=== PATIENT | female | born 1930 | race Caucasian/White ===

== ENCOUNTER → 2017-08-19 | Outpatient (CLI) | payer MEDICARE, OTHER ==
[~2017-08-19] MED LIST: ACIP20TA PO; ASPI81TA2 PO; CEFT500T PO; DRIS1CAP PO; DRON40TA PO; GENE10SO PO; HYDR12.56 PO; LEVO500T PO; LOTR5CAP2 PO; SYMB16INH INH; SYNT75TA PO; ZITH500T PO; ZOFR4TAB3 PO; spiriva INH
[2017-08-19 10:09] LABS: BASO % 0.5 % (0.0-1.0); EOS # 0.1 K/mm3 (0.0-0.50); EOS % 2.8 % (0.0-3.0); LARGE UNSTAINED CELL # 0.1 K/mm3 (0.0-0.4); LARGE UNSTAINED CELL % 2.1 % (0.0-4.0); LYMPH # 1.6 K/mm3 (1.5-4.5); LYMPH % 34.2 % (24.0-44.0); MEAN CORPUSCULAR HEMOGLOBIN 32.2 pg (27.0-33.0); MEAN CORPUSCULAR HGB CONC 34.2 g/dl (32.0-36.5); MEAN CORPUSCULAR VOLUME 94.2 fl (80.0-96.0); MONO # 0.3 K/mm3 (0.0-0.8); MONO % 7.2 % (0.0-5.0); NEUTROPHILS # 2.5 K/mm3 (1.8-7.7); NEUTROPHILS % 53.2 % (36.0-66.0); PLATELET COUNT, AUTOMATED 287 k/mm3 (150-450); RED CELL DISTRIBUTION WIDTH 12.2 % (11.5-14.5); WHITE BLOOD COUNT 4.7 K/mm3 (4.0-10.0)
[2017-08-19 10:44] LABS: CALCIUM LEVEL 8.2 MG/DL (8.8-10.2); CREATININE FOR GFR 1.55 MG/DL (0.55-1.02); GLOMERULAR FILTRATION RATE 33.6 (>32); POTASSIUM SERUM 3.3 MEQ/L (3.5-5.1)
== END ==
LOC: M LAB 09:31
PROVIDERS: ATTEND Nurse Practitioner Adult Health
DX: R94.39 Abnormal result of other cardiovascular function study (principal)

== ENCOUNTER → 2017-10-04 | Outpatient (REF) | payer MEDICARE, OTHER ==
[2017-10-04 13:43] LABS: RBC, URINE 0-1 /hpf (0-3)
[2017-10-04 13:46] LABS: BACTERIA, URINE LARGE AMOUNT; HYALINE CAST, URINE NONE SEEN /lpf (0-1); SQUAMOUS EPITHELIAL CELL URINE SMALL AMOUNT /hpf (SMALL AMT)
[2017-10-04 13:47] LABS: MICROSCOPIC EXAM PERFORMED; WBC, URINE 40-50 /hpf (0-3)
== END ==
LOC: M LAB REF 13:11
PROVIDERS: ATTEND Internal Medicine Nephrology
DX: N18.3 Chronic kidney disease, stage 3 (moderate) (principal)

== ENCOUNTER → 2018-06-04 | Outpatient (REF) | payer MEDICARE, OTHER ==
[2018-06-04 14:24] LABS: PTH INTACT 65.5 PG/ML (18.5-88.0)
== END ==
LOC: M LAB REF 13:52
DX: I12.9 Hypertensive chronic kidney disease with stage 1 through stage 4 chronic kidney disease, or unspecified chronic kidney disease (principal); N18.3 Chronic kidney disease, stage 3 (moderate)
CPT/HCPCS: 83970

== ENCOUNTER → 2018-12-11 | Outpatient (REF) | payer MEDICARE, OTHER | LOC: M LAB REF 11:30 | PROVIDERS: ATTEND Internal Medicine | DX: I12.9 Hypertensive chronic kidney disease with stage 1 through stage 4 chronic kidney disease, or unspecified chronic kidney disease (principal); E03.2 Hypothyroidism due to medicaments and other exogenous substances; N18.3 Chronic kidney disease, stage 3 (moderate) ==

== ENCOUNTER → 2019-06-18 | Outpatient (REF) | payer MEDICARE, OTHER ==
[~2019-06-18] MED LIST changes: +ONDA-228 PO; -ZOFR4TAB3 PO
== END ==
LOC: M LAB REF 13:02
PROVIDERS: ATTEND Internal Medicine
DX: I12.9 Hypertensive chronic kidney disease with stage 1 through stage 4 chronic kidney disease, or unspecified chronic kidney disease (principal); N18.3 Chronic kidney disease, stage 3 (moderate); E03.2 Hypothyroidism due to medicaments and other exogenous substances